=== PATIENT | female | born 1950 | race Caucasian/White ===

== ENCOUNTER 2018-08-15 10:17 | Emergency (ER) | payer MEDICARE, OTHER ==
[~2018-08-15] VITALS: Ht 162.6 cm; Wt 90.9 kg
[2018-08-15] MEDS ORDERED: HYDROXYCHLOR200 M1 PO (10:55)
[2018-08-15] MEDS ORDERED: LOSARTAN POT50 MG PO (10:56)
[2018-08-15] MEDS ORDERED: HYDRALAZINE25 MG PO (10:57)
[2018-08-15] MEDS ORDERED: CARVEDILOL3.125 MG PO (10:58)
[2018-08-15] MEDS ORDERED: DILT-XR240 MG PO (10:58)
[2018-08-15] MEDS ORDERED: DULOXETINE HCL30 MG PO (10:59)
[2018-08-15] MEDS ORDERED: FOLIC ACID1 MG PO (11:00)
[2018-08-15] MEDS ORDERED: MULTI VIT PO (11:00)
[2018-08-15] MEDS ORDERED: METHOTREXATE2.5 MG PO (11:01)
[2018-08-15] MEDS ORDERED: BACLOFEN10 MG PO (11:02)
[2018-08-15 12:05] VITALS: BP 130/81
[2018-08-15] MEDS ORDERED: MOTRIN400 MG PO (12:08)
== END 2018-08-15 12:05 | disposition home or self-care (01) ==
LOC: ED 10:17
DX: M54.5 Low back pain (principal)